=== PATIENT | male | born 1980 | race Two or more races ===

== ENCOUNTER 2022-11-18 16:20 | Emergency (ER) | payer OTHER ==
[~2022-11-18] VITALS: Ht 180.3 cm; Wt 96.0 kg
[2022-11-18 18:12] VITALS: BP 124/91
[2022-11-18 19:25] LABS: Basophils # (auto) 0.2 10 ^3/uL (0-0.2); Eosinophils # (auto) 0 10 ^3/uL (0-0.8); Eosinophils % (auto) 0.2 % (0.0-7.0); Hematocrit 46.6 % (41.0-53.0); Hemoglobin 15.8 g/dL (13.5-17.5); Lymphocytes % (auto) 13.2 % (10.0-50.0); Mean Corpuscular Hemoglobin 30.4 pg (28.0-32.0); Mean Corpuscular Volume 89.5 fL (80.0-100.0); Monocytes # (auto) 0.8 10 ^3/uL (0-1.3); Neutrophils # (auto) 12.5 10 ^3/uL (1.6-8.6); Neutrophils % (auto) 80.6 % (37.0-80.0); Red Cell Distribution Width 13.3 % (11.8-14.3); White Blood Cell 15.5 10^3/uL (4.4-10.8)
[2022-11-18 19:31] LABS: Albumin 4.1 g/dL (3.4-5.0); Calcium 8.7 mg/dL (8.5-10.1); Potassium 4.3 mmol/L (3.5-5.1)
[2022-11-18 19:33] LABS: BUN/Creatinine Ratio 9.7
[2022-11-18 19:36] LABS: Bilirubin, Total 0.3 mg/dL (0.2-1.0); Total Protein 8.1 g/dL (6.4-8.2)
[2022-11-18] MEDS ORDERED: BACL20TA PO (20:57)
[2022-11-18] MEDS ORDERED: IBUP800T26 PO (20:57)
== END 2022-11-19 00:40 | disposition home or self-care (01) ==
LOC: ER 16:20 → EDBD 16:20 → ER 11-19 00:40
DX: S00.81XA Abrasion of other part of head, initial encounter (principal); M54.50 Low back pain, unspecified; F10.10 Alcohol abuse, uncomplicated; M54.2 Cervicalgia; R51.9 Headache, unspecified; Z79.1 Long term (current) use of non-steroidal anti-inflammatories (NSAID); Z79.899 Other long term (current) drug therapy; V49.9XXA Car occupant (driver) (passenger) injured in unspecified traffic accident, initial encounter; Y93.89 Activity, other specified; Y92.89 Other specified places as the place of occurrence of the external cause; Y99.8 Other external cause status; Y90.6 Blood alcohol level of 120-199 mg/100 ml
CPT/HCPCS: 36415; 70450; 72125; 74176; 80053; 80320; 85025